=== PATIENT | male | born 1990 | race Asian ===

== ENCOUNTER → 2020-04-18 | Outpatient (REF) | payer OTHER ==
[2020-04-18 18:59] LABS: BASO % 0.3 % (0.0-1.0); EOS # 0.2 10^3/uL (0.0-0.5); EOS % 2.5 % (0.0-3.0); HEMOGLOBIN 14.4 g/dl (13.5-17.5); LYMPH # 2.6 10^3/uL (1.5-5.0); LYMPH % 35.6 % (24.0-44.0); MEAN CORPUSCULAR HEMOGLOBIN 29.9 pg (27.0-33.0); MEAN CORPUSCULAR HGB CONC 34.3 g/dl (32.0-36.5); MEAN CORPUSCULAR VOLUME 87.3 fl (80.0-96.0); MONO # 0.4 10^3/uL (0.0-0.8); MONO % 5.9 % (0.0-5.0); NEUTROPHILS # 4.1 10^3/uL (1.5-8.5); NEUTROPHILS % 55.6 % (36.0-66.0); PLATELET COUNT, AUTOMATED 223 10^3/uL (150-450); RED BLOOD COUNT 4.81 10^6/uL (4.30-6.10); WHITE BLOOD COUNT 7.3 10^3/uL (4.0-10.0)
[2020-04-22 08:09] LABS: E001-IgE Cat Epith/Dander 0.86 kU/L (Class II); E005-IgE Dog Dander 0.35 kU/L (Class I); G002-IgE Bermuda Grass 0.39 kU/L (Class I); G008-IgE Kentucky Bluegrass 0.14 kU/L (Class 0/I); M001-IgE Penicillium chrysogen 0.48 kU/L (Class I); M002 IgE Cladosporium herbaru 0.22 kU/L (Class 0/I); M006-IgE Alternaria alternata 0.76 kU/L (Class II); T001-IgE Maple/Box Elder 0.17 kU/L (Class 0/I); T006-IgE Cedar, Mountain 3.51 kU/L (Class III); T007-IgE Oak, White 0.14 kU/L (Class 0/I); T008-IgE Elm, American 0.15 kU/L (Class 0/I); T015-IgE Ash, White 0.24 kU/L (Class 0/I); T041-IgE Hickory, White < 0.10 kU/L (Class 0); T070-IgE White Mulberry < 0.10 kU/L (Class 0); W001-IgE Ragweed, Short 7.39 kU/L (Class IV); W014-IgE Pigweed, Rough 0.16 kU/L (Class 0/I); W018-IgE Sheep Sorrel 0.21 kU/L (Class 0/I)
== END ==
LOC: M LAB REF 16:47
PROVIDERS: ATTEND Physician Assistant
DX: J45.50 Severe persistent asthma, uncomplicated (principal)

== ENCOUNTER → 2020-04-30 | Outpatient (CLI) | payer OTHER ==
--- NOTE | 2020-05-01 05:09 | REP ---
Clinical: Dyspnea. Technique: Noncontrast high-resolution axial imaging from the thoracic inlet to the upper abdomen. Images obtained in inspiration and expiration along with coronal and sagittal re-formations. Comparison: None. Findings: Very minimal biapical scarring is appreciated. Lung roa are otherwise well aerated, symmetric, and essentially clear. No consolidation, pleural effusion, or pneumothorax. No obvious air trapping or abnormalities noted on expiration images. No significant nodule or mass lesion. Tracheobronchial tree is patent and without evidence for bronchiectasis. No adenopathy. Mediastinum demonstrates normal thoracic aorta, pulmonary vasculature, and heart/pericardium. Surrounding musculoskeletal structures are intact. Limited upper abdomen demonstrates normal bilateral adrenal glands. Impression: Essentially normal noncontrast chest CT including high-resolution imaging and expiration evaluation. Electronically Signed by Mata Salvador MD 05/01/2020 05:00 A
== END ==
LOC: M RAD 10:39 → EDUNIT# 11:30
PROVIDERS: ATTEND Internal Medicine Pulmonary Disease
DX: R06.00 Dyspnea, unspecified (principal)

== ENCOUNTER → 2020-11-05 | Outpatient (REF) | payer OTHER | LOC: M LAB REF 17:04 | PROVIDERS: ATTEND Internal Medicine Pulmonary Disease | DX: J45.50 Severe persistent asthma, uncomplicated (principal) ==

== ENCOUNTER → 2020-12-13 | Outpatient (REF) | payer OTHER | LOC: M LAB REF 16:55 | PROVIDERS: ATTEND Internal Medicine Pulmonary Disease | DX: J45.50 Severe persistent asthma, uncomplicated (principal) ==

== ENCOUNTER → 2021-01-04 | Outpatient (CLI) | payer OTHER | LOC: M LAB 09:44 | PROVIDERS: ATTEND Physician Assistant | DX: J45.50 Severe persistent asthma, uncomplicated (principal) ==

== ENCOUNTER → 2021-02-04 | Outpatient (CLI) | payer OTHER | LOC: M LAB 10:02 | PROVIDERS: ATTEND Physician Assistant | DX: J45.50 Severe persistent asthma, uncomplicated (principal) ==